=== PATIENT | female | born 1990 | race Caucasian/White ===

== ENCOUNTER 2024-01-20 06:34 | Day surgery (SDC) | payer SELFPAY ==
[2024-01-13 12:25] VITALS: BMI 25.7
[2024-01-20] MEDS ORDERED: LIDOCAINE 1%/EPI 1:100000 (20 ML MULTI DOSE VIAL) ONE (07:26)
[2024-01-20] MEDS ORDERED: POLYMYXIN B SULFATE 500,000 UNIT VIAL ONE ×2 (07:26→12:45)
[2024-01-20] MEDS ORDERED: GENTAMICIN SO4 80 MG/2 ML VIAL ONE ×2 (07:26→12:45)
[2024-01-20] MEDS ORDERED: ceFAZolin SODIUM 1 GM VIAL ONE ×3 (07:26→12:45)
[2024-01-20] MEDS ORDERED: BUPIVACAINE HCL/PF 2.5 MG/ML - 30 ML VIAL IJ ONE (07:26)
[2024-01-20] MEDS ORDERED: HYDROmorphone HCL/PF 1 MG/ML VIAL ONE (07:51)
[2024-01-20] MEDS ORDERED: PROPOFOL 80 ML ONE (07:51)
[2024-01-20] MEDS ORDERED: MIDAZOLAM HCL 2 MG/2 ML SINGLE DOSE VIAL ONE (07:51)
[2024-01-20] MEDS ORDERED: LIDOCAINE HCL/PF 2% SDV 5ML VIAL ONE (07:52)
[2024-01-20] MEDS ORDERED: ONDANSETRON 4 MG/2 ML VIAL ONE (07:52)
[2024-01-20] MEDS ORDERED: DEXAMETHASONE SOD PHOSPHATE 4 MG/1 ML VIAL ONE (07:52)
[2024-01-20] MEDS ORDERED: SEVOFLURANE 250 ML BTL ONE (07:54)
[2024-01-20] MEDS ORDERED: oxyCODONE HCL 5 MG TABLET PO PRN ×2 (08:22)
[2024-01-20] MEDS ORDERED: ONDANSETRON 4 MG/2 ML VIAL IVPUSH PRN (08:22)
[2024-01-20] MEDS ORDERED: ACETAMINOPHEN 1000 MG/100 ML BAG IVPB PRN (08:23)
[2024-01-20] MEDS ORDERED: LACTATED RINGERS SOLUTION 1,000 ML IV SCH (08:30)
[2024-01-20] MEDS ORDERED: GUM MASTIC/STORAX/MSAL/ALCOHOL 1 DRP DROPSBTL MC ONE (09:08)
[2024-01-20 14:16] VITALS: TEMP 97.1
[2024-01-20 15:16] VITALS: BP 122/76; PULSE 71; RESP 19
== END 2024-01-20 15:31 | disposition home or self-care (01) ==
LOC: FASU 06:34 → EDSEX 13:00 → FASU 15:31
PROVIDERS: ATTEND Surgery
CPT/HCPCS: 81025; 94760